=== PATIENT | male | born 1985 | race Caucasian/White ===

== ENCOUNTER 2020-08-04 20:16 | Emergency (ER) | payer OTHER ==
[~2020-08-04 20:16] MED LIST: AUGMENTIN 875-1 EACH PO; FLAGYL500 MG PO; OMEPRAZOLE20 M1 PO
[2020-08-05 00:37] LABS: HEMOGLOBIN 18.3 gm/dl (14.0-17.5); RED BLOOD COUNT 6.03 M/UL (4.20-5.50); WHITE BLOOD COUNT 11.2 K/UL (4.5-11.0)
[2020-08-05 00:39] LABS: BUN/CREATININE RATIO 20 (0-10)
[2020-08-05] MEDS ORDERED: LODINE CAP 300300 MG PO (00:53)
[2020-08-05] MEDS ORDERED: ZOFRAN ODT 4 MG4 MG PO (00:53)
[2020-08-05] MEDS ORDERED: BENTYL 20MG TAB20 MG PO (00:53)
== END 2020-08-05 01:05 | disposition home or self-care (01) ==
LOC: ER1 20:16
PROVIDERS: Family Medicine
DX: R10.812 Left upper quadrant abdominal tenderness (principal); R11.0 Nausea; F17.210 Nicotine dependence, cigarettes, uncomplicated; Z87.19 Personal history of other diseases of the digestive system
CPT/HCPCS: 80053; 81001; 83690; 85025; 87086; 99284; Q9967